=== PATIENT | male | born 1975 | race Caucasian/White ===

== ENCOUNTER → 2020-05-07 | Day surgery (SDC) | payer OTHER ==
[~2020-05-07] MED LIST: METHYLPREDNISOLONE INJ 40 MG/1 ML SDV ONE
--- NOTE | 2020-05-07 15:53 | RADIOLOGY REPORT (SQ) ---
EXAM DESCRIPTION: U/S GUIDED ASP/INJ WRI/ELB/ANK IMAGES COMPLETED DATE/TIME: 05/07/2020 3:03 pm REASON FOR STUDY: GANGLION, RIGHT WRIST (M67.431) M67.431 GANGLION, RIGHT WRIST COMPARISON: None. LIMITATIONS: None. PROCEDURE: Procedure, risks, benefit, and alternative explained to patient who then gave written con sent. Right wrist was prepped and draped in a standard sterile fashion. 3 cc of 1% lidocaine was ut ilized for local sedation. Under direct ultrasound guidance an 18 gauge needle was introduced into t he complex hypoechoic collection along the dorsal right wrist. After needle position confirmed aspir ation was performed yielding a small amount of thick mucoid material. Approximately approximately 10 mg of Solu-Medrol was administered at this location with a small amount of 1% lidocaine. The needle was redirected and additional aspiration performed. Sonographic evaluation demonstrated decreased size of the main component with small residual adjacent collection. Additional 3 cc of 1% lidocaine was utilized for local sedation. The 18 gauge needle w as advanced into the collection under sonographic evaluation. Small amount of additional mucoid mate rial was aspirated. Additional 0.25 cc of Solu-Medrol and 1% lidocaine was administered at this loca tion. The needle was removed and hemostasis achieved with manual compression. A sterile dressing wa s applied. Patient tolerated procedure well left the ultrasound suite in stable condition. Images acquired during the procedure were stored on PACS. FINDINGS: Focused sonographic evaluation of the dorsal right wrist demonstrates a predominantly anec hoic collection with scattered septations within the subcutaneous tissues compatible with a ganglion cyst. Intraprocedural imaging demonstrates needle within the lesion of interest. Postprocedural josé ging demonstrates decreased size of the collection. IMPRESSION: Successful ultrasound-guided right wrist aspiration and steroid injection as above. COMMENT: Patient medication list reviewed:Yes- Quality ID# [id number]:Eligible professional attests to docu menting in the medical record they obtained, updated, or reviewed the patient's current medications. TECHNICAL DOCUMENTATION: JOB ID: [id number] 2010 [employer]- All Rights Reserved TECHNIQUE SITE OF CONCERN: Dorsal right wrist Reading location - IP/workstation name: [email or web address]
== END ==
LOC: RAD 13:34
PROVIDERS: ATTEND Physician Assistant
DX: M67.431 Ganglion, right wrist (principal)
CPT/HCPCS: 20606; J2920